=== PATIENT | male | born 1940 | race Caucasian/White ===

== ENCOUNTER → 2022-07-19 14:35 | Outpatient (CLI) | payer MEDICARE, SELFPAY ==
[2022-07-19 15:35] LABS: COVID19 -Nasal RAPID Negative (Negative)
== END ==
PROVIDERS: Radiology Diagnostic Radiology; PCP Student in an Organized Health Care Education/Training Program; Referring Provider Student in an Organized Health Care Education/Training Program; Visit Provider Student in an Organized Health Care Education/Training Program
DX: I25.10 Atherosclerotic heart disease of native coronary artery without angina pectoris (principal); I25.83 Coronary atherosclerosis due to lipid rich plaque; R53.83 Other fatigue; Z20.822 Contact with and (suspected) exposure to COVID-19
CPT/HCPCS: 36415; 85027; 87635; C9803

== ENCOUNTER → 2022-07-19 15:11 | Outpatient (CLI) | payer MEDICARE, SELFPAY ==
[2022-07-19 15:55] LABS: Hematocrit 35.3 % (41-53); Hemoglobin 11.9 g/dL (13.5-17.5); Mean Corpuscular HGB Conc 33.9 % (30-36); Mean Corpuscular Hemoglobin 32.6 PG (26-34); Mean Corpuscular Volume 96.2 fL (80-100); Platelet Count 378 X10^3/uL (150-400); Red Blood Cell Count 3.66 X10^6/uL (4.5-5.9); Red Cell Distribution Width 13.2 % (11.6-14.8); White Blood Cell Count 6.1 X10^3/uL (4.5-11.0)
== END ==
PROVIDERS: PCP Student in an Organized Health Care Education/Training Program; Referring Provider Internal Medicine; Visit Provider Internal Medicine
DX: R53.83 Other fatigue (principal); I25.10 Atherosclerotic heart disease of native coronary artery without angina pectoris; I25.83 Coronary atherosclerosis due to lipid rich plaque
CPT/HCPCS: 36415; 85027

== ENCOUNTER → 2022-07-20 07:43 | Outpatient (CLI) | payer MEDICARE, SELFPAY ==
--- NOTE | 2022-07-20 07:54 | DI.NM.S_ITS ---
PROCEDURE: NM EXERCISE TREADMILL NON NUC COMPARISON: None. INDICATIONS: Chest pain, unspecified FINDINGS: the patient exercised for 9 minutes and 18 seconds reaching 113% of maximum predicted heart rate (10.1 METs, WAI -67%). Appropriate BP response to exercise. No angina and no diagnostic ST changes with exercise. Occasional PVCs noted. IMPRESSION: Low risk, normal treadmill ECG only stress with outstanding exercise tolerance (WAI -67%). Dictated by: Ani Cortez MD on 07/20/2022 at 16:43 Approved by: Ani Cortez MD on 07/20/2022 at 16:45
== END ==
PROVIDERS: PCP Student in an Organized Health Care Education/Training Program; Referring Provider Student in an Organized Health Care Education/Training Program; Visit Provider Student in an Organized Health Care Education/Training Program
DX: R07.9 Chest pain, unspecified (principal)
CPT/HCPCS: 93017